=== PATIENT | male | born 1975 | race Caucasian/White ===

== ENCOUNTER → 2018-08-20 | Outpatient (CLI) | payer MEDICAID ==
[2018-08-20 12:18] LABS: HEMATOCRIT 44.8 % (37.9-51.0); HEMOGLOBIN 15.4 g/dL (13.5-17.0); MEAN CORPUSCULAR HEMOGLOBIN 32.8 pg (27.0-33.4); MEAN CORPUSCULAR HGB CONC 34.3 g/dL (32.0-36.0); MEAN CORPUSCULAR VOLUME 96 fl (80-97); PLATELET COUNT 256 10^3/uL (150-450); RED BLOOD COUNT 4.69 10^6/uL (4.35-5.55); RED CELL DISTRIBUTION WIDTH 12.4 % (11.5-14.0); WHITE BLOOD COUNT 9.4 10^3/uL (4.0-10.5)
[2018-08-20 12:50] LABS: ANION GAP 13 (5-19); BLOOD UREA NITROGEN 8 mg/dL (7-20); CALCIUM 9.6 mg/dL (8.4-10.2); CARBON DIOXIDE 27 mmol/L (22-30); CHLORIDE 95 mmol/L (98-107); GLUCOSE 91 mg/dL (75-110); POTASSIUM 4.3 mmol/L (3.6-5.0); SODIUM 135.3 mmol/L (137-145)
--- NOTE | 2018-08-20 12:54 | RADIOLOGY REPORT (SQ) ---
EXAM DESCRIPTION: CHEST SINGLE VIEW COMPLETED DATE/TIME: 08/20/2018 11:33 am REASON FOR STUDY: PREOP COMPARISON: 11/05/2014 EXAM PARAMETERS: NUMBER OF VIEWS: One view. TECHNIQUE: Single frontal radiographic view of the chest acquired. RADIATION DOSE: NA LIMITATIONS: None. FINDINGS: LUNGS AND PLEURA: No opacities, masses or pneumothorax. No pleural effusion. MEDIASTINUM AND HILAR STRUCTURES: Chronic elevation left hemidiaphragm. HEART AND VASCULAR STRUCTURES: Heart normal in size. Normal vasculature. BONES: Scoliosis convex right. HARDWARE: Stimulator. OTHER: No other significant finding. IMPRESSION: NO ACUTE RADIOGRAPHIC FINDING IN THE CHEST. TECHNICAL DOCUMENTATION: JOB ID: [id number] [employer]- All Rights Reserved Reading location - IP/workstation name: [email or web address]
--- NOTE | 2018-08-20 21:27 | EKG REPORT ---
SEVERITY:- NORMAL ECG - SINUS RHYTHM : Confirmed by: Tressa Chairez MD 20-Aug-2018 21:26:30
== END ==
LOC: OD 10:39
PROVIDERS: ATTEND Otolaryngology
DX: G40.219 Localization-related (focal) (partial) symptomatic epilepsy and epileptic syndromes with complex partial seizures, intractable, without status epilepticus (principal)
CPT/HCPCS: 36415; 71045; 80048; 85027; 93005; 93010

== ENCOUNTER 2019-09-19 01:15 | Emergency (ER) | payer MEDICAID ==
[2019-09-19] MEDS ORDERED: LEVETIRACETAM 1000 MG/NACL-ISO 1,000 MG/100 ML RTUPB IV ONE (01:38)
--- NOTE | 2019-09-19 01:38 | ER Document Report ---
ED Seizure - General Stated Complaint: SEIZURE Time Seen by Provider: 09/19/19 01:28 Primary Care Provider: KIANA HUNT MD [Primary Care Provider] - 09/22/19 Notes: Patient is a 44-year-old male that comes emergency department by EMS for chief complaint of seizure activity. Patient has a history of microcephaly, epilepsy, mental retardation, and is nonverbal at baseline. Candy Packer at bedside states that the other bottom precipitator operator called her and told her that patient had an initial seizure that lasted for 6 minutes, then patient seized twice again within the next 45 minutes, each seizure lasted between 5 and 10 minutes reportedly. Candy Packer states that patient has on average 3 seizures a day but he does not usually have them in sequence like this. Patient is on Onfi, valproic acid, and patient was given 20 mg of Diastat by the bottom precipitator operator as he developed the third seizure. EMS did not note the patient to be seizing on arrival. Patient is at his mental baseline per bottom precipitator operator, patient is awake, gesturing, makes loud vocalizations without speaking. Candy Packer denies any fall or injury, patient was in bed when the seizures occurred. Patient has not had any fevers, vomiting, cough, and she states he has been eating and drinking normally. Meds: Depakote 500 mg BID, Onfi 20 mg daily, vigabatrin 1500 mg (3 500 mg tabs) BID, Banzel 200 mg BID, rufinamide (Banzel) 200 mg BID. - Related Data Allergies/Adverse Reactions: No Known Allergies Allergy (Verified 10/08/14 19:46) Past Medical History - General Information source: Legal Guardian - Social History Smoking Status: Never Smoker Frequency of alcohol use: None Drug Abuse: None Lives with: Guardian Family History: Reviewed & Not Pertinent - Past Medical History Cardiac Medical History: Denies: Hx Coronary Artery Disease, Hx Heart Attack, Hx Hypertension Pulmonary Medical History: Reports: Hx Pneumonia, Hx Tuberculosis Denies: Hx Asthma, Hx Bronchitis, Hx COPD Neurological Medical History: Reports: Hx Seizures. Denies: Hx Cerebrovascular Accident Musculoskeletal Medical History: Denies Hx Arthritis Past Surgical History: Reports: Hx Orthopedic Surgery. Denies: Hx Pacemaker - Immunizations Hx Diphtheria, Pertussis, Tetanus Vaccination: Yes Hx Pneumococcal Vaccination: 01/01/08 Review of Systems - Review of Systems Constitutional: See HPI EENT: No symptoms reported Cardiovascular: No symptoms reported Respiratory: No symptoms reported Gastrointestinal: No symptoms reported Genitourinary: No symptoms reported Male Genitourinary: No symptoms reported Musculoskeletal: No symptoms reported Skin: No symptoms reported Hematologic/Lymphatic: No symptoms reported Neurological/Psychological: See HPI Physical Exam - Vital signs Vitals: Resp BP Pulse Ox 22 H 116/84 95 09/19/19 01:18 09/19/19 01:18 09/19/19 01:18 - Notes Notes: GENERAL: Alert, does not appear to be in distress. Patient frequently vocalizes and looks around. He does respond to me being present but does not follow directions HEAD: No signs of trauma, nontender EYES: Pupils equal, round, and reactive to light. Extraocular movements intact. ENT: Oral mucosa moist, tongue midline. Oropharynx unremarkable. Airway patent. NECK: Full range of motion. Supple. Trachea midline. No lymphadenopathy. LUNGS: Clear to auscultation bilaterally, no wheezes, rales, or rhonchi. No respiratory distress. Non-tender chest wall. HEART: Regular rate and rhythm. No murmur ABDOMEN: Soft, non-tender. Non-distended. EXTREMITIES: Moves all 4 extremities spontaneously. No edema, normal radial and dorsalis pedis pulses bilaterally. No cyanosis. BACK: no cervical, thoracic, lumbar midline tenderness. Moves all extremities in full range of motion. NEUROLOGICAL: Patient is alert and responds to me being present but does not answer questions, cannot produce normal speech, limited neurological exam as a result of patient's baseline deficits SKIN: Warm, dry, normal turgor. No rashes or lesions noted. Course - Re-evaluation Re-evalutation: Patient reportedly at baseline. Vital signs unremarkable. CBC, chemistry, magnesium, urinalysis unremarkable. Chest x-ray shows possible early developing right lower lobe pneumonia which could indicate aspiration pneumonia given the patient's history and general condition. Valproic acid level is unremarkable. I was called to bedside for possible seizure activity, patient was jerking his arms and glancing his eyes rapidly back and forth laterally for a brief period that lasted approximately 30 seconds and then stopped. Patient remained alert afterwards and did not appear to be postictal. Patient did not become tachycardic or hypotensive. Candy Packer at bedside informed me that he had a seizure but I discussed I am not certain this was a seizure and I suspect it was not based on the observed activity and vital signs. I did attempt to speak with Dr. Hunt but he is not able to be contacted through the hospital system, I attempted to call his office but there was no on-call service. I discussed with Dr. Luo. She recommends that since patient typically has multiple seizures on a daily basis, since patient is essentially at his baseline, since his evaluation here is reassuring with no noted seizure activity, that patient can have a CAT scan of the head and if this is unremarkable patient to be discharged on clindamycin for aspiration pneumonia with follow-up with his neurologist tomorrow and return cautions. I discussed at length with bottom precipitator operator, she is very agreeable with this plan. CAT scan of the head was unremarkable. - Vital Signs Vital signs: Temp Pulse Resp BP Pulse Ox 98.6 F 21 H 103/82 94 09/19/19 05:00 09/19/19 05:00 09/19/19 05:00 09/19/19 05:00 - Laboratory Result Diagrams: 09/19/19 01:29 09/19/19 01:29 Laboratory results interpreted by me: 09/19/19 09/19/19 09/19/19 01:29 01:29 02:02 RBC 3.95 L MCH 34.8 H [place] % (Auto) 14.0 H Sodium 132.6 L Creatinine 0.50 L Glucose 113 H Urine Urobilinogen 2.0 H Discharge - Discharge Clinical Impression: Epilepsy Qualifiers: Epilepsy type: unspecified Intractability: not intractable Status epilepticus: without status epilepticus Qualified Code(s): G40.909 - Epilepsy, unspecified, not intractable, without status epilepticus Aspiration pneumonia Qualifiers: Aspiration pneumonia type: unspecified Laterality: right Lung location: lower lobe of lung Qualified Code(s): J69.0 - Pneumonitis due to inhalation of food and vomit Condition: Stable Disposition: HOME, SELF-CARE Additional Instructions: His work-up including CAT scan and laboratory work-up did not show any concerning findings at this time except the chest x-ray which does suggest an early developing aspiration pneumonia as we discussed. Take the antibiotics as prescribed to completion. Call his neurologist in close follow-up for additional management of his epilepsy. Return if he worsens including development of fever, vomiting, repeated seizures, or any other concerning or worsening symptoms. Prescriptions: Clindamycin HCl 300 mg PO Q6H 7 Days #28 capsule Referrals: KIANA HUNT MD [Primary Care Provider] - 09/22/19
[2019-09-19 01:42] LABS: ABSOLUTE BASOPHILS # (AUTO) 0.1 10^3/uL (0.0-0.2); ABSOLUTE EOSINOPHILS # (AUTO) 0.1 10^3/uL (0.0-0.6); ABSOLUTE LYMPHOCYTES (AUTO) 1.7 10^3/uL (0.5-4.7); ABSOLUTE MONOCYTES (AUTO) 0.9 10^3/uL (0.1-1.4); ABSOLUTE NEUT (AUTO) 3.6 10^3/uL (1.7-8.2); BASOPHILS % (AUTO) 0.9 % (0-2); EOSINOPHILS % (AUTO) 1.5 % (0-6); HEMATOCRIT 38.2 % (37.9-51.0); HEMOGLOBIN 13.8 g/dL (13.5-17.0); LYMPHOCYTES % (AUTO) 26.8 % (13-45); MEAN CORPUSCULAR HEMOGLOBIN 34.8 pg (27.0-33.4); MEAN CORPUSCULAR VOLUME 97 fl (80-97); PLATELET COUNT 200 10^3/uL (150-450); RED BLOOD COUNT 3.95 10^6/uL (4.35-5.55); RED CELL DISTRIBUTION WIDTH 12.4 % (11.5-14.0); SEGMENTED NEUTROPHILS % (AUTO) 56.8 % (42-78); TOTAL CELLS COUNTED % (AUTO) 100 %; WHITE BLOOD COUNT 6.3 10^3/uL (4.0-10.5)
[2019-09-19 02:01] LABS: ALBUMIN 3.8 g/dL (3.5-5.0); ALKALINE PHOSPHATASE 120 U/L (38-126); ANION GAP 7 (5-19); ASPARTATE AMINO TRANSFERASE 21 U/L (17-59); BILIRUBIN,TOTAL 0.2 mg/dL (0.2-1.3); BLOOD UREA NITROGEN 7 mg/dL (7-20); CALCIUM 8.8 mg/dL (8.4-10.2); CARBON DIOXIDE 28 mmol/L (22-30); CHLORIDE 98 mmol/L (98-107); CREATINE KINASE 62 U/L (55-170); GLUCOSE 113 mg/dL (75-110); POTASSIUM 4.1 mmol/L (3.6-5.0); TOTAL PROTEIN 6.7 g/dL (6.3-8.2)
[2019-09-19 02:09] LABS: ALCOHOL < 10 mg/dL (NONE DETECTED)
[2019-09-19 02:12] LABS: APPEARANCE,URINE CLEAR; BILIRUBIN,URINE NEGATIVE (NEGATIVE); COLOR,URINE YELLOW; GLUCOSE, URINE NEGATIVE (NEGATIVE); KETONES,URINE NEGATIVE (NEGATIVE); LEUKOCYTE ESTERASE,URINE NEGATIVE (NEGATIVE); NITRITE,URINE NEGATIVE (NEGATIVE); PROTEIN,URINE NEGATIVE (NEGATIVE); URINE SPECIFIC GRAVITY 1.013
--- NOTE | 2019-09-19 02:30 | RADIOLOGY REPORT (SQ) ---
EXAM DESCRIPTION: XR CHEST 1 VIEW COMPLETED DATE/TME: 09/19/2019 01:35 CLINICAL HISTORY: borderline hypoxia, seizure COMPARISON: 08/20/2018 FINDINGS: Single frontal radiograph view of the chest. Cardiomediastinal silhouette: Heart is not enlarged. Hiatal hernia. Left sided generator. Lungs: Low lung volumes. Mild right basilar opacity. No pneumothorax or large effusion. Bones: : Curvature of the thoracolumbar spine. Upper abdomen: No abnormality identified. IMPRESSION: 1. Mild right basilar opacity may represent developing pneumonic process or atelectasis. 2. Large hiatal hernia.
[2019-09-19] MEDS ORDERED: LORAZEPAM INJ 2 MG/1 ML VIAL IV ONE (03:04)
--- NOTE | 2019-09-19 04:16 | RADIOLOGY REPORT (SQ) ---
CLINICAL HISTORY: multiple seizures. HX MR, MICROCEPHALIC, EPILEPSY COMPARISON: None. TECHNIQUE: CT HEAD WITHOUT IV CONTRAST on 09/19/2019 2:43 AM CDT This exam was performed according to our departmental dose-optimization program, which includes automated exposure control, adjustment of the mA and/or kV according to patient size and/or use of iterative reconstruction technique. FINDINGS: There is no acute hemorrhage, mass effect or midline shift. There is mild right parietal encephalomalacia. There is a large claudia cisterna magna. There is no hydrocephalus. There is no significant volume loss for age. The calvarium is intact. Orbits and globes are unremarkable. The paranasal sinuses are clear. Mastoid air cells are clear. IMPRESSION: No acute intracranial findings.
[2019-09-19 06:05] VITALS: BP 103/82
--- NOTE | 2019-09-19 09:47 | EKG REPORT ---
SEVERITY:- NORMAL ECG - SINUS RHYTHM : Confirmed by: Wilfredo Mcclellan MD 19-Sep-2019 09:46:03
== END 2019-09-19 06:52 | disposition home or self-care (01) ==
LOC: ER 01:15
DX: G40.909 Epilepsy, unspecified, not intractable, without status epilepticus (principal); J69.0 Pneumonitis due to inhalation of food and vomit; K44.9 Diaphragmatic hernia without obstruction or gangrene; Q02 Microcephaly; F79 Unspecified intellectual disabilities; Z79.899 Other long term (current) drug therapy
CPT/HCPCS: 93005; 99284; 96375; 96365; 36415; 80307; 82550; 83735; 85025; 80053; 81001; 80164; 71045; 70450; 93010; J2060; J1953